=== PATIENT | male | born 1975 ===

== ENCOUNTER 2023-09-24 16:48 | Outpatient (REF) | payer BC, SELFPAY ==
[2023-09-24 19:32] LABS: Anion Gap 10.5 mmol/L (3-11); BUN 18 mg/dL (7-18); CO2 27.5 mmol/L (21.0-32.0); CREATININE 1.1 mg/dL (0.70-1.30); Calcium 9.1 mg/dL (8.5-10.1); Calculated LDL 129 mg/dL (<100); Chloride 105 mmol/L (98-107); Cholesterol 210 mg/dL (<200); Estimated GFR 81.78 (mL/min/1.73m2); Glucose 90 mg/dL (74-106); HDL Cholesterol 54 mg/dL (40-60); Potassium 3.9 mmol/L (3.5-5.1); Sodium 143 mmol/L (136-145); Triglyceride 139 mg/dL (<150)
== END 2023-09-24 16:49 | disposition home or self-care (01) ==
LOC: NCHCN 16:48
PROVIDERS: Visit Provider Nurse Practitioner Family
DX: Z13.1 Encounter for screening for diabetes mellitus (principal); Z13.220 Encounter for screening for lipoid disorders
CPT/HCPCS: 80048; 80061

== ENCOUNTER 2024-11-17 17:58 | Outpatient (REF) | payer BC, SELFPAY ==
--- NOTE | 2024-11-17 09:30 | SKI_PTH ---
PATIENT: Ulises Guerrero LOC: [facility] U#:[id number] AGE/SX: 49/M ROOM: RE11/17/[address]: Sophia Hernandez : 1975 BED: DIS: 11/17/2024 SPEC #: [id number] RECD: 11/17/24 18:07 STATUS: GASPER REQ #: [id number] KAVITA: 11/17/24 09:[address] RECD BY: Karlie Goodwin ENTERED: 11/17/24 18:08 SP TYPE: LOURDES ATKINSON DR: Unknown,Unknown Tissues: 1 - SKIN BIOPSY(SHAVE/PUNCH) 2 - SKIN BIOPSY(SHAVE/PUNCH) Procedures: SKIN LEVEL 4 Comments: [id number]
== END 2024-11-17 17:59 | disposition home or self-care (01) ==
LOC: NCHCN 17:58
PROVIDERS: Visit Provider Nurse Practitioner Family
DX: L82.1 Other seborrheic keratosis (principal)
CPT/HCPCS: 88305